=== PATIENT | female | born 1955 | race Caucasian/White ===

== ENCOUNTER → 2019-06-03 | Outpatient (CLI) | payer BC ==
[~2019-06-03] MED LIST: FENO145T2 PO; INSASP10V SQ; INSU100I14 SQ; INSU100I16 SQ; INSU100V5 SQ; LISI1TAB10 PO; SITA1TAB6 PO
--- NOTE | 2019-06-03 19:42 | Diagnostic Imaging Report ---
INDICATION: Left-sided rib and sternal pain with inspiration. Patient fell on the driveway this afternoon around 4 p.m. FINDINGS: Three views of the left ribs demonstrate the left lung to be clear. No fractures are identified. IMPRESSION: Normal left ribs. Dictated by: Dictated on workstation # [id number]
== END ==
LOC: RAD 17:39
PROVIDERS: ATTEND Nurse Practitioner Family
DX: R07.81 Pleurodynia (principal); W19.XXXA Unspecified fall, initial encounter
CPT/HCPCS: 71100

== ENCOUNTER → 2020-03-23 | Outpatient (CLI) | payer BC ==
--- NOTE | 2020-03-26 12:57 | Diagnostic Imaging Report ---
INDICATION: Routine screening. COMPARISON: 04/09/2018 and 03/04/2017. TECHNIQUE: 2D and 3D bilateral screening mammography was performed with CAD. FINDINGS: Scattered fibroglandular densities are identified bilaterally. There are benign calcifications scattered throughout both breasts. The overall parenchymal pattern is stable. No new mass or malignant appearing microcalcifications are seen. The axillae are unremarkable. IMPRESSION: No mammographic features suspicious for malignancy are identified. ACR BI-RADS Category 2: Benign findings. Result letter will be mailed to the patient. Note: At least 10% of breast cancer is not imaged by mammography. Dictated by: Dictated on workstation # [id number]
== END ==
LOC: RAD 07:44
PROVIDERS: ATTEND Internal Medicine
DX: Z12.31 Encounter for screening mammogram for malignant neoplasm of breast (principal)
CPT/HCPCS: 77063; 77067

== ENCOUNTER → 2020-10-12 | Outpatient (CLI) | payer BC ==
--- NOTE | 2020-10-12 13:14 | Diagnostic Imaging Report ---
INDICATION: Left breast lump. Correlation is made with prior mammogram from 03/23/2020 and 04/09/2018. The lateral left 2-D and 3-D diagnostic mammography was performed with CAD. Left breast is heterogeneously dense, limiting sensitivity of mammography. A BB marker was placed at the area of palpable abnormality in the left breast. No definite underlying abnormality is seen. There are benign calcifications throughout the left breast. No dominant mass is seen. Left axilla is unremarkable. IMPRESSION: BI-RADS 0. No mammographic features suspicious for malignancy are identified. Even so, directed sonographic interrogation of the area of lump left breast is recommended and will be performed today. ACR BI-RADS Category 0: Incomplete. (Needs additional imaging evaluation). Result letter will be mailed to the patient. Note: At least 10% of breast cancer is not imaged by mammography. Dictated by: Dictated on workstation # [id number]
--- NOTE | 2020-10-12 14:18 | Diagnostic Imaging Report ---
INDICATION: Left breast lump. CORRELATION is made with diagnostic mammogram earlier same day. Sonographic interrogation of the area of palpable lump left breast was performed. This corresponds to the 9:30 location approximately 5 cm from the nipple. There is a hypoechoic irregular solid-appearing mass at this location measuring 2.0 x 1.5 x 1.9 cm. This demonstrates posterior acoustic shadowing. There is internal vascularity. IMPRESSION: BI-RADS Category 4 Irregular hypoechoic solid mass at the 9:30 location of the left breast, 5 cm from the nipple. This corresponds to the palpable abnormality. This is highly concerning for breast neoplasm and tissue sampling is recommended. This would be amenable to ultrasound-guided core biopsy. Dictated by: Dictated on workstation # [id number]
== END ==
LOC: RAD 13:15
PROVIDERS: ATTEND Physician Assistant
DX: N63.22 Unspecified lump in the left breast, upper inner quadrant (principal)
CPT/HCPCS: 76642; 77065; G0279

== ENCOUNTER → 2020-10-16 | Outpatient (CLI) | payer BC, MEDICARE ==
[~2020-10-16] MED LIST changes: +LIDOCAINE 1% INJ 20 ML 20 ML VIAL INJ ONE
--- NOTE | 2020-10-16 15:41 | Diagnostic Imaging Report ---
INDICATION: Left breast mass. Patient presents for ultrasound guided core biopsy. DETAILS OF THE PROCEDURE: The patient was brought to the procedure room and placed on the table in the supine position. Ultrasound imaging of the left breast was performed to evaluate for an appropriate entry site. The skin of the left breast was then prepped and draped in the usual sterile fashion. A small amount of 1% lidocaine was utilized for local anesthesia. A total of 3 core biopsies of the irregular hypoechoic solid mass at the 9:30 location of the left breast 5 cm from the nipple was performed utilizing a 14-gauge Achieve needle. A marker clip was then deployed. Hemostasis was obtained using manual compression. The patient tolerated the procedure well and left the Department in stable condition. IMPRESSION: Successful ultrasound guided core biopsy of the solid mass at the 9:30 location of the left breast 5 cm from the nipple. Pathology results are currently pending. Dictated by: Dictated on workstation # [id number]
--- NOTE | 2020-10-17 10:01 | Diagnostic Imaging Report ---
INDICATION: Status post left breast biopsy. Unilateral left CC and MLO mammography was performed status post left breast biopsy. There is a marker clip located next to an area of architectural distortion medial left breast, status post biopsy. There are benign calcifications throughout the left breast. IMPRESSION: Marker clip, as described. Dictated by: Dictated on workstation # [id number]
== END ==
LOC: RAD 13:00
PROVIDERS: ATTEND Internal Medicine
DX: N63.22 Unspecified lump in the left breast, upper inner quadrant (principal)
CPT/HCPCS: 19083; 77065; A4648; G0279

== ENCOUNTER → 2020-10-26 | Outpatient (CLI) | payer BC, MEDICARE ==
[~2020-10-26] MED LIST changes: +BARIUM SUSPENSION 2.1% (VANILLA SILQ) 450 ML PO ONE; +CATHETER FLUSH 10 ML SYR IV PRN; +HOLD METFORMIN - RECEIVED CONTRAST 20 ML VIAL IV SCH; +IOHEXOL 350 MG/ML 100 ML (OMNIPAQUE 350) VIAL IV ONE; -LIDOCAINE 1% INJ 20 ML 20 ML VIAL INJ ONE; +NS 100 ML (IVPB) BAG IV ONE
--- NOTE | 2020-10-26 11:36 | Diagnostic Imaging Report ---
PROCEDURE: CT chest with contrast, CT abdomen with and without contrast. TECHNIQUE: Precontrast acquisitions were acquired through the abdomen. Multiple contiguous axial images were obtained through the chest and abdomen after administration of intravenous contrast. Auto Exposure Controls were utilized during the CT exam to meet ALARA standards for radiation dose reduction. INDICATION: New diagnosis breast cancer. FINDINGS: There is no axillary or internal mammary lymphadenopathy. The remaining mediastinal and hilar stations appeared normal. No pulmonary nodule or detectable lung mass. No thoracic effusion. There is some mild focal parenchymal distortion in the medial left breast superior to the nipple line. This is an equivocal CT finding. No suspicious lytic or sclerotic bony lesion. ABDOMEN: The liver density is consistent with its fatty infiltration. There is a large stone at the gallbladder. No bile duct dilatation. The pancreas and adrenals are negative. There is no abdominal mesenteric or retroperitoneal adenopathy and there is no ascites. The atherosclerotic aorta is nonaneurysmal. The kidneys unobstructed. The nonfocal spleen unremarkable. The pancreas negative. There is focal skin thickening and subcutaneous induration in the right upper quadrant which may reflect a focal area of cellulitis. No discrete mass or fluid collection. No gas or foreign body. IMPRESSION: 1. No findings of metastatic disease to the chest or abdomen. 2. Fatty liver and cholelithiasis. 3. Right upper quadrant focal subcutaneous induration and skin thickening suggestive of mild focal cellulitis correlate clinically. 4. No definite visualization of the patient's reported breast cancer, however there is some mild focal irregularity of the parenchyma in the upper inner quadrant of the left breast. No evidence for hematoma or other fluid collection. Dictated by: Dictated on workstation # [id number]
--- NOTE | 2020-10-26 14:44 | Diagnostic Imaging Report ---
INDICATION: Breast carcinoma. TECHNIQUE: Patient was administered 26.6 mCi technetium 99m MDP intravenously and whole body imaging was performed after a three-hour delay. COMPARISON: No prior bone scans are available for comparison. FINDINGS: There is normal uptake of activity by the axial and appendicular skeleton. There is uptake by the kidneys with excretion into the urinary bladder. Mild uptake involving the proximal left fibula is noted which may be degenerative. No suspicious focus of tracer accumulation is seen to suggest osseous metastatic disease. IMPRESSION: No scintigraphic evidence of osseous metastatic disease. Dictated by: Dictated on workstation # [id number]
== END ==
LOC: CARD 11:00
PROVIDERS: ATTEND Internal Medicine Hematology & Oncology
DX: C50.919 Malignant neoplasm of unspecified site of unspecified female breast (principal); K76.0 Fatty (change of) liver, not elsewhere classified; K80.20 Calculus of gallbladder without cholecystitis without obstruction
CPT/HCPCS: 71260; 74170; 78306; A9503

== ENCOUNTER → 2021-01-17 | Outpatient (RCR) | payer BC, MEDICARE ==
[2020-10-19 10:01] LABS: BASOPHILS % (AUTO) 1 % (0-10); EOSINOPHILS # (AUTO) 0.2 10^3/uL (0.0-0.3); EOSINOPHILS % (AUTO) 5 % (0-10); HEMATOCRIT 37 % (35-52); HEMOGLOBIN 12.5 g/dL (11.5-16.0); LYMPHOCYTES # (AUTO) 1.9 10^3/uL (1.0-4.0); LYMPHOCYTES % (AUTO) 36 % (12-44); MEAN CORPUSCULAR HEMOGLOBIN 29 pg (25-34); MEAN CORPUSCULAR HGB CONC 33 g/dL (32-36); MEAN CORPUSCULAR VOLUME 87 fL (80-99); MEAN PLATELET VOLUME 9.8 fL (9.0-12.2); MONOCYTES # (AUTO) 0.4 10^3/uL (0.0-1.0); MONOCYTES % (AUTO) 8 % (0-12); NEUTROPHILS # (AUTO) 2.7 10^3/uL (1.8-7.8); NEUTROPHILS % (AUTO) 51 % (42-75); PLATELET COUNT 212 10^3/uL (130-400); WHITE BLOOD COUNT 5.3 10^3/uL (4.3-11.0)
[2020-10-19 10:18] LABS: ALBUMIN 4.2 GM/DL (3.2-4.5); BILIRUBIN,TOTAL 0.5 MG/DL (0.1-1.0); CALCIUM 10.1 MG/DL (8.5-10.1); CREATININE SERUM 1.05 MG/DL (0.60-1.30); POTASSIUM 4.5 MMOL/L (3.6-5.0); TOTAL PROTEIN 7.4 GM/DL (6.4-8.2)
[~2021-01-17] MED LIST changes: -BARIUM SUSPENSION 2.1% (VANILLA SILQ) 450 ML PO ONE; -CATHETER FLUSH 10 ML SYR IV PRN; -HOLD METFORMIN - RECEIVED CONTRAST 20 ML VIAL IV SCH; -IOHEXOL 350 MG/ML 100 ML (OMNIPAQUE 350) VIAL IV ONE; -NS 100 ML (IVPB) BAG IV ONE
[2021-01-17 09:45] LABS: BASOPHILS # (AUTO) 0.1 10^3/uL (0.0-0.1); BASOPHILS % (AUTO) 1 % (0-10); EOSINOPHILS # (AUTO) 0.3 10^3/uL (0.0-0.3); EOSINOPHILS % (AUTO) 5 % (0-10); HEMATOCRIT 40 % (35-52); HEMOGLOBIN 13.5 g/dL (11.5-16.0); LYMPHOCYTES # (AUTO) 2.9 10^3/uL (1.0-4.0); LYMPHOCYTES % (AUTO) 39 % (12-44); MEAN CORPUSCULAR HEMOGLOBIN 29 pg (25-34); MEAN CORPUSCULAR HGB CONC 34 g/dL (32-36); MEAN CORPUSCULAR VOLUME 87 fL (80-99); MONOCYTES # (AUTO) 0.7 10^3/uL (0.0-1.0); MONOCYTES % (AUTO) 10 % (0-12); NEUTROPHILS # (AUTO) 3.3 10^3/uL (1.8-7.8); NEUTROPHILS % (AUTO) 45 % (42-75); PLATELET COUNT 234 10^3/uL (130-400); WHITE BLOOD COUNT 7.3 10^3/uL (4.3-11.0)
[2021-01-17 10:04] LABS: ALBUMIN 4.5 GM/DL (3.2-4.5); BILIRUBIN,TOTAL 0.4 MG/DL (0.1-1.0); CALCIUM 10.2 MG/DL (8.5-10.1); CREATININE SERUM 1.06 MG/DL (0.60-1.30); POTASSIUM 4.9 MMOL/L (3.6-5.0); TOTAL PROTEIN 7.9 GM/DL (6.4-8.2)
== END | disposition home or self-care (01) ==
LOC: ONC 10-19 09:31
PROVIDERS: ATTEND Internal Medicine Hematology & Oncology
DX: C50.412 Malignant neoplasm of upper-outer quadrant of left female breast (principal)
CPT/HCPCS: 80053; 85025; G0463; 99213; 99214

== ENCOUNTER 2021-02-12 08:56 | Emergency (ER) | payer BC, MEDICARE ==
[~2021-02-12] VITALS: Ht 160 cm; Wt 86.0 kg
[2021-02-12 09:24] LABS: BASOPHILS # (AUTO) 0.1 10^3/uL (0.0-0.1); BASOPHILS % (AUTO) 1 % (0-10); EOSINOPHILS # (AUTO) 0.3 10^3/uL (0.0-0.3); EOSINOPHILS % (AUTO) 6 % (0-10); HEMATOCRIT 39 % (35-52); LYMPHOCYTES # (AUTO) 1.7 10^3/uL (1.0-4.0); LYMPHOCYTES % (AUTO) 34 % (12-44); MEAN CORPUSCULAR HEMOGLOBIN 29 pg (25-34); MEAN CORPUSCULAR HGB CONC 34 g/dL (32-36); MEAN CORPUSCULAR VOLUME 85 fL (80-99); MONOCYTES # (AUTO) 0.4 10^3/uL (0.0-1.0); MONOCYTES % (AUTO) 9 % (0-12); NEUTROPHILS # (AUTO) 2.4 10^3/uL (1.8-7.8); NEUTROPHILS % (AUTO) 50 % (42-75); PLATELET COUNT 193 10^3/uL (130-400); WHITE BLOOD COUNT 4.9 10^3/uL (4.3-11.0)
--- NOTE | 2021-02-12 09:24 | ED General ---
General Stated Complaint: HIGH BLOOD,CARREON,LATHARGIC Source of Information: Patient Exam Limitations: No Limitations History of Present Illness Date Seen by Provider: Feb 12, 2021 Time Seen by Provider: 09:08 Initial Comments Patient is a 65-year-old female who presents to the emergency department today with a chief complaint of feeling dizzy, mild to moderate headache, nausea and vomiting. Patient states symptoms started within the last 24 hours. She denies any sick contacts at home. Patient is currently being treated by radiation therapy for breast cancer on a daily basis. Patient states her symptoms prim arily started last evening. She denies abdominal pain, diarrhea, black or bloody stools. No urinary complaints. No chest pain or shortness of breath. No upper respiratory symptoms. No changes to her medications. She takes medications for high blood pressure, diabetes and high cholesterol. Patient has been out of her insulin for the last several days. She states she routinely runs out towards the end of the month. All other review of systems reviewed and negative except as stated. Timing/Duration: 24 Hours Severity: Moderate Modifying Factors: worse with Movement Associated Systoms: Headaches, Nausea/Vomiting, Other (Dizzy) Allergies and Home Medications Allergies Coded Allergies: No Known Drug Allergies (Unverified , 08/06/10) Home Medications Fenofibrate,Micronized 145 Mg Tablet, 1 EACH PO DAILY, (Reported) Hctz/Lisinopril 1 Tab Tablet, 1 EACH PO DAILY, (Reported) Insulin Aspart 10 Unit/0.1 Ml Vial, 25 UNIT SQ AC BREAKFAST Prescribed by: SARAH HARRINGTON on 08/15/10 0825 Insulin Aspart 100 Unit/1 Ml Insuln.pen, 20 UNIT SQ BID, (Reported) Insulin Detemir 100 Unit/1 Ml Vial, 50 UNIT SQ HS Prescribed by: SARAH HARRINGTON on 08/15/10 0825 Insulin Detemir 100 Unit/1 Ml Insuln.pen, 50 UNIT SQ HS, (Reported) Sitagliptin Phos/Metformin Hcl 1 Each Tablet, 1 EACH PO BID WITH MEALS, (Reported) Patient Home Medication List Home Medication List Reviewed: Yes Review of Systems Review of Systems Constitutional: see HPI EENTM: no symptoms reported Respiratory: no symptoms reported Cardiovascular: no symptoms reported Gastrointestinal: nausea, vomiting Genitourinary: no symptoms reported Musculoskeletal: no symptoms reported Skin: no symptoms reported Psychiatric/Neurological: Headache, Other (Dizziness) All Other Systems Reviewed Negative Unless Noted: Yes Past Rgsyamj-Vnlplx-Fikvbu Hx Past Medical History Reproductive Disorders: No (STATES HAS A LUMP IN RIGHT BREAST, BUT WASTOLD "I AM FINE") Physical Exam Vital Signs Vital Signs - First Documented 02/12/21 09:00 Temp 36.6 Pulse 77 Resp 18 B/P (MAP) 177/89 (118) Pulse Ox 98 Capillary Refill : Height, Weight, BMI Height: '" Weight: lbs. oz. kg; BMI Method: General Appearance: No Apparent Distress, WD/WN Eyes: Bilateral Eye Normal Inspection, Bilateral Eye PERRL, Bilateral Eye EOMI HEENT: TM Abnormal (R) (Fluid behind right TM, left TM appears normal) Neck: Normal Inspection Respiratory: No Accessory Muscle Use, No Respiratory Distress Cardiovascular: Regular Rate, Rhythm Gastrointestinal: Non Tender, Soft Extremity: Normal Capillary Refill, Normal Inspection, Normal Range of Motion, Non Tender Neurologic/Psychiatric: Alert, Oriented x3, No Motor/Sensory Deficits, Normal Mood/Affect, full stack python developer II-XII Norm as Tested, Other (Normal jvupap-lv-pnsf. On extraocular muscle testing the patient states that she "sees double" with forced deviation to the left) Skin: Normal Color, Warm/Dry Progress/Results/Core Measures Suspected Sepsis SIRS Temperature: Pulse: Respiratory Rate: Laboratory Tests 02/12/21 09:20: White Blood Count 4.9 Blood Pressure / Mean: Laboratory Tests 02/12/21 09:20: Creatinine 0.97, Platelet Count 193 Results/Orders Lab Results Laboratory Tests Test 02/12/21 09:20 02/12/21 09:30 Range/Units White Blood Count 4.9 4.3-11.0 10^3/uL Red Blood Count 4.53 3.80-5.11 10^6/uL Hemoglobin 13.0 11.5-16.0 g/dL Hematocrit 39 35-52 % Mean Corpuscular Volume 85 80-99 fL Mean Corpuscular Hemoglobin 29 25-34 pg Mean Corpuscular Hemoglobin Concent 34 32-36 g/dL Red Cell Distribution Width 13.0 10.0-14.5 % Platelet Count 193 130-400 10^3/uL Mean Platelet Volume 10.0 9.0-12.2 fL Immature Granulocyte % (Auto) 0 % Neutrophils (%) (Auto) 50 42-75 % Lymphocytes (%) (Auto) 34 12-44 % Monocytes (%) (Auto) 9 0-12 % Eosinophils (%) (Auto) 6 0-10 % Basophils (%) (Auto) 1 0-10 % Neutrophils # (Auto) 2.4 1.8-7.8 10^3/uL Lymphocytes # (Auto) 1.7 1.0-4.0 10^3/uL Monocytes # (Auto) 0.4 0.0-1.0 10^3/uL Eosinophils # (Auto) 0.3 0.0-0.3 10^3/uL Basophils # (Auto) 0.1 0.0-0.1 10^3/uL Immature Granulocyte # (Auto) 0.0 0.0-0.1 10^3/uL Sodium Level 137 135-145 MMOL/L Potassium Level 4.3 3.6-5.0 MMOL/L Chloride Level 101 98-107 MMOL/L Carbon Dioxide Level 23 21-32 MMOL/L Anion Gap 13 5-14 MMOL/L Blood Urea Nitrogen 11 7-18 MG/DL Creatinine 0.97 0.60-1.30 MG/DL Estimat Glomerular Filtration Rate 57 BUN/Creatinine Ratio 11 Glucose Level 332 H 70-105 MG/DL Calcium Level 9.8 8.5-10.1 MG/DL Urine Color YELLOW Urine Clarity CLEAR Urine pH 6.0 5-9 Urine Specific [place] 1.020 1.016-1.022 Urine Protein 1+ H NEGATIVE Urine Glucose (UA) 2+ H NEGATIVE Urine Ketones NEGATIVE NEGATIVE Urine Nitrite NEGATIVE NEGATIVE Urine Bilirubin NEGATIVE NEGATIVE Urine Urobilinogen 0.2 < = 1.0 MG/DL Urine Leukocyte Esterase NEGATIVE NEGATIVE Urine RBC (Auto) NEGATIVE NEGATIVE Urine RBC NONE /HPF Urine WBC 0-2 /HPF Urine Squamous Epithelial Cells RARE /HPF Urine Crystals NONE /LPF Urine Bacteria NEGATIVE /HPF Urine Casts NONE /LPF Urine Mucus NEGATIVE /LPF Urine Culture Indicated NO My Orders Orders - REGINO RHODES MD Cbc With Automated Diff (02/12/21 09:20) Basic Metabolic Panel (02/12/21 09:20) Ua Culture If Indicated (02/12/21 09:20) Ed Iv/Invasive Line Start (02/12/21 09:20) Ct Head Wo (02/12/21 10:13) Vital Signs/I&O 02/12/21 09:00 Temp 36.6 Pulse 77 Resp 18 B/P (MAP) 177/89 (118) Pulse Ox 98 Capillary Refill : Point of Care Testing Finger Stick Blood Glucose: 343 Progress Note : Time: 11:16 Progress Note Patient has been resting comfortably throughout her stay here in the emergency department. Her dizziness seems to have improved. Patient states she still has mild to moderate headache. We will give her a little Tylenol prior to disc harge. Labs are reviewed and are all within normal limits except for some hyperglycemia on her chemistry. Her CT brain noncontrast shows no acute abnormalities. Vital signs have been stable. Patient is counseled on vertigo and sudden movements contributing to the dizzy spells. I will send some Zofran to her pharmacy for the nausea. Patient is encouraged to drink plenty of flu ids. She verbalizes understanding. She has no clinical or objective findings at this time to warrant further studies or admission to the hospital. All questions have been sought and answered. Patient is stable for discharge. Departure Impression Primary Impression: Vertigo Additional Impressions: Headache Qualified Codes: R51.9 - Headache, unspecified Hyperglycemia due to type 2 diabetes mellitus Qualified Codes: E11.65 - Type 2 diabetes mellitus with hyperglycemia; Z79.4 - half-way (current) use of insulin Disposition: 01 HOME, SELF-CARE Condition: Stable Departure-Patient Inst. Decision time for Depature: 11:18 Referrals: DAVID PUTNAM MD (PCP/Family) Primary Care Physician Patient Instructions: Dizziness, Adult ED Add. Discharge Instructions: Drink plenty of fluids to stay well-hydrated. Be careful when changing positions as this can cause your dizzy spells to recur. Continue your home daily medications, especially your insulin. Follow-up with Dr. Putnam. Return to the emergency room for any new, concerning or emergent complaints. Scripts Ondansetron (Ondansetron Odt) 4 Mg Tab.rapdis 4 MG PO Q8H PRN for nausea, #20 TAB Prov: REGINO RHODES MD 02/12/21 REGINO RHODES MD Feb 12, 2021 09:24
[2021-02-12 09:41] LABS: BILIRUBIN,URINE NEGATIVE (NEGATIVE); CLARITY,URINE CLEAR; COLOR,URINE YELLOW; GLUCOSE, URINE (UA) 2+ (NEGATIVE); KETONES,URINE NEGATIVE (NEGATIVE); LEUKOCYTE ESTERASE ,URINE NEGATIVE (NEGATIVE); NITRITE,URINE NEGATIVE (NEGATIVE); PROTEIN,URINE 1+ (NEGATIVE)
[2021-02-12 09:48] LABS: POTASSIUM 4.3 MMOL/L (3.6-5.0)
[2021-02-12 09:48] LABS: BACTERIA,URINE NEGATIVE /HPF; SQUAMOUS EPITHELIAL CELL,UR RARE /HPF; WBC,URINE 0-2 /HPF
[2021-02-12 09:50] LABS: CALCIUM 9.8 MG/DL (8.5-10.1)
[2021-02-12 09:54] LABS: CREATININE SERUM 0.97 MG/DL (0.60-1.30)
--- NOTE | 2021-02-12 10:45 | Diagnostic Imaging Report ---
Clinical indication: Patient with dizziness and headache. Patient on radiation treatment for breast cancer. Exam: Axial CT scan of the brain without IV contrast with coronal and sagittal reformatted images. Auto Exposure Controls were utilized during the CT exam to meet ALARA standards for radiation dose reduction. Comparison: None. Findings: There is no evidence of acute cerebral infarct, intracranial hemorrhage, or gross mass effect. The brain parenchymal volume appears appropriate for patient's age. There is subtle low-attenuation areas involving both cerebral hemispheres, likely representing chronic small vessel ischemic disease. There is normal hernandez-white matter distinction. There is no significant midline shift or herniation. There is no evidence of hydrocephalus. The basal cisterns are unremarkable. There are small lucent areas involving the calvarium. The largest one measures 11 mm in the right lateral frontal region. These findings are nonspecific. Intraosseous hemangiomas may be considered, but should be followed on subsequent imaging. There are no sclerotic lesions seen. Otherwise, the skull, extracranial soft tissue, and orbits are unremarkable. The paranasal sinuses are unremarkable. Temporal bones show no significant abnormality. Impression: 1: There is no evidence of acute intracranial process. There is no definite evidence of metastatic disease seen on this exam. If there is further need to evaluate for subtle areas of brain metastasis, then MRI of the brain with and without IV contrast would better evaluate. 2: Age-related brain parenchymal changes. 3: There are small lucent areas involving the calvarium which are nonspecific. Intraosseous hemangiomas may be considered. These areas should be followed on subsequent imaging. There is no sclerotic calvarial lesion seen. Dictated by: Dictated on workstation # [id number]
[2021-02-12] MEDS ORDERED: ACETAMINOPHEN 500 MG TAB (TYLENOL) PO ONE (11:15)
[2021-02-12] MEDS ORDERED: ONDA4TAB11 PO (11:20)
[2021-02-12 11:28] VITALS: BP 171/92
== END 2021-02-12 11:29 | disposition home or self-care (01) ==
LOC: EDUNIT# 08:56 → ER 09:00
DX: R42 Dizziness and giddiness (principal); R51.9 Headache, unspecified; E11.65 Type 2 diabetes mellitus with hyperglycemia
CPT/HCPCS: 36415; 70450; 80048; 81000; 85025

== ENCOUNTER → 2021-04-02 | Outpatient (CLI) | payer BC, MEDICARE ==
[~2021-04-02] MED LIST changes: +ONDA4TAB11 PO
--- NOTE | 2021-04-02 15:46 | Diagnostic Imaging Report ---
INDICATION: 65-year-old asymptomatic postmenopausal female. COMPARISON: None available. FINDINGS: AP Spine L2-L4: [BMD (g/cm2): 0.958] [T-Score: -2.0] [Z-Score: -1.1] [BMD Previous: na] [BMD % Change: na] LT Hip Neck: [BMD (g/cm2): 0.829] [T-Score: -1.5] [Z-Score: -0.4] LT Hip Total: [BMD (g/cm2):0.947] [T-Score:-0.5] [Z-Score: 0.3] [BMD Previous: na] [BMD % Change: na] RT Hip Neck: [BMD (g/cm2):0.824] [T-Score:-1.5] [Z-Score:-0.5] RT Hip Total: [BMD (g/cm2):0.935] [T-score:-0.6] [Z-Score:0.2] [BMD Previous:na] [BMD % Change:na] *Indicates significant change from prior examination based on 95% confidence level. World Health Organization criteria for BMD interpretation classify patients as Normal (T-score at or above -1.0), Osteopenic (T-score between -1.0 and -2.5) or Osteoporotic (T-score at or below -2.5). LIMITATIONS AND MODIFICATION: None. FRACTURE RISK (FRAX SCORE): The ten year probability of (%): Major Osteoporotic Fracture: [8.8] Hip Fracture: [1.0] IMPRESSION: 1. Osteopenia (Low bone mass). 2. Baseline examination. 3. See below National Osteoporosis Foundation guidelines on when to potentially initiate pharmacologic therapy. Based on the National Osteoporosis Foundation Guidelines, pharmacologic treatment should be initiated in any of the following, unless clinical conditions suggest otherwise: * Any patient with prior fragility fracture of the hip or vertebrae. A spine fracture indicates 5X risk for subsequent spine fracture and 2X risk for subsequent hip fracture. * Osteoporosis (T-score <-2.5). * Postmenopausal women and men age 50 and older with low bone mass/osteopenia (T-score between -1.0 and -2.5) by DXA and 10-year major osteoporotic fracture greater than 20% or a 10-year probability of hip fracture greater than 3%. These fracture risks are supplied above in the FRAX score, if applicable. * Clinician judgement and/or patient preferences may indicate treatment for people with 10-year fracture probabilities above or below these levels. Dictated by: Dictated on workstation # [id number]
== END ==
LOC: RAD 12:30
PROVIDERS: ATTEND Nurse Practitioner Adult Health
DX: M85.80 Other specified disorders of bone density and structure, unspecified site (principal); C50.219 Malignant neoplasm of upper-inner quadrant of unspecified female breast; Z78.0 Asymptomatic menopausal state
CPT/HCPCS: 77080

== ENCOUNTER → 2021-04-02 | Outpatient (CLI) | payer BC, MEDICARE ==
[2021-04-02 12:31] LABS: BASOPHILS % (AUTO) 1 % (0-10); EOSINOPHILS # (AUTO) 0.2 10^3/uL (0.0-0.3); EOSINOPHILS % (AUTO) 5 % (0-10); HEMATOCRIT 37 % (35-52); HEMOGLOBIN 12.7 g/dL (11.5-16.0); LYMPHOCYTES # (AUTO) 1.3 10^3/uL (1.0-4.0); LYMPHOCYTES % (AUTO) 32 % (12-44); MEAN CORPUSCULAR HEMOGLOBIN 30 pg (25-34); MEAN CORPUSCULAR HGB CONC 34 g/dL (32-36); MEAN CORPUSCULAR VOLUME 88 fL (80-99); MEAN PLATELET VOLUME 9.7 fL (9.0-12.2); MONOCYTES # (AUTO) 0.4 10^3/uL (0.0-1.0); MONOCYTES % (AUTO) 9 % (0-12); NEUTROPHILS # (AUTO) 2.2 10^3/uL (1.8-7.8); NEUTROPHILS % (AUTO) 52 % (42-75); PLATELET COUNT 195 10^3/uL (130-400); WHITE BLOOD COUNT 4.1 10^3/uL (4.3-11.0)
[2021-04-02 12:50] LABS: ALBUMIN 4.3 GM/DL (3.2-4.5); BILIRUBIN,TOTAL 0.4 MG/DL (0.1-1.0); CREATININE SERUM 1.16 MG/DL (0.60-1.30); TOTAL PROTEIN 7.6 GM/DL (6.4-8.2)
== END ==
LOC: LAB 12:11
PROVIDERS: ATTEND Nurse Practitioner Family
DX: Z00.00 Encounter for general adult medical examination without abnormal findings (principal); I10 Essential (primary) hypertension; E11.9 Type 2 diabetes mellitus without complications
CPT/HCPCS: 36415; 80053; 80061; 83036; 84443; 85025

== ENCOUNTER 2021-04-25 09:21 | Outpatient (RCR) | payer BC, MEDICARE ==
[2021-02-28 13:07] LABS: BASOPHILS # (AUTO) 0.1 10^3/uL (0.0-0.1); BASOPHILS % (AUTO) 1 % (0-10); EOSINOPHILS # (AUTO) 0.3 10^3/uL (0.0-0.3); EOSINOPHILS % (AUTO) 5 % (0-10); HEMATOCRIT 39 % (35-52); HEMOGLOBIN 13.1 g/dL (11.5-16.0); LYMPHOCYTES # (AUTO) 1.5 10^3/uL (1.0-4.0); LYMPHOCYTES % (AUTO) 23 % (12-44); MEAN CORPUSCULAR HEMOGLOBIN 30 pg (25-34); MEAN CORPUSCULAR HGB CONC 34 g/dL (32-36); MEAN CORPUSCULAR VOLUME 87 fL (80-99); MEAN PLATELET VOLUME 10.2 fL (9.0-12.2); MONOCYTES # (AUTO) 0.7 10^3/uL (0.0-1.0); MONOCYTES % (AUTO) 11 % (0-12); NEUTROPHILS # (AUTO) 3.7 10^3/uL (1.8-7.8); NEUTROPHILS % (AUTO) 59 % (42-75); PLATELET COUNT 200 10^3/uL (130-400); WHITE BLOOD COUNT 6.3 10^3/uL (4.3-11.0)
[2021-02-28 13:27] LABS: ALBUMIN 4.3 GM/DL (3.2-4.5); BILIRUBIN,TOTAL 0.5 MG/DL (0.1-1.0); CALCIUM 10.2 MG/DL (8.5-10.1); CREATININE SERUM 1.08 MG/DL (0.60-1.30); POTASSIUM 4.6 MMOL/L (3.6-5.0)
[2021-04-10 15:39] LABS: BASOPHILS # (AUTO) 0.1 10^3/uL (0.0-0.1); BASOPHILS % (AUTO) 1 % (0-10); EOSINOPHILS # (AUTO) 0.3 10^3/uL (0.0-0.3); EOSINOPHILS % (AUTO) 4 % (0-10); HEMATOCRIT 39 % (35-52); LYMPHOCYTES % (AUTO) 33 % (12-44); MEAN CORPUSCULAR HEMOGLOBIN 30 pg (25-34); MEAN CORPUSCULAR HGB CONC 33 g/dL (32-36); MEAN CORPUSCULAR VOLUME 89 fL (80-99); MEAN PLATELET VOLUME 9.9 fL (9.0-12.2); MONOCYTES # (AUTO) 0.5 10^3/uL (0.0-1.0); MONOCYTES % (AUTO) 9 % (0-12); NEUTROPHILS # (AUTO) 3.1 10^3/uL (1.8-7.8); NEUTROPHILS % (AUTO) 52 % (42-75); PLATELET COUNT 222 10^3/uL (130-400); WHITE BLOOD COUNT 5.9 10^3/uL (4.3-11.0)
[2021-04-10 16:01] LABS: ALBUMIN 4.4 GM/DL (3.2-4.5); BILIRUBIN,TOTAL 0.3 MG/DL (0.1-1.0); CALCIUM 10.1 MG/DL (8.5-10.1); CREATININE SERUM 1.08 MG/DL (0.60-1.30); POTASSIUM 4.6 MMOL/L (3.6-5.0)
== END 2021-04-29 | disposition home or self-care (01) ==
LOC: ONC 09:21
PROVIDERS: ATTEND Internal Medicine Hematology & Oncology
DX: Z51.0 Encounter for antineoplastic radiation therapy (principal); C50.212 Malignant neoplasm of upper-inner quadrant of left female breast; I10 Essential (primary) hypertension; E78.00 Pure hypercholesterolemia, unspecified; E11.9 Type 2 diabetes mellitus without complications; K21.9 Gastro-esophageal reflux disease without esophagitis; Z90.12 Acquired absence of left breast and nipple; Z98.890 Other specified postprocedural states; Z17.0 Estrogen receptor positive status [ER+]; M19.90 Unspecified osteoarthritis, unspecified site; Z87.891 Personal history of nicotine dependence; Z80.3 Family history of malignant neoplasm of breast; Z79.4 Long term (current) use of insulin; Z79.899 Other long term (current) drug therapy
CPT/HCPCS: 77280; 77290; 77295; 77300; 77307; 77334; 77336; 77417; 80053; 82306; 85025; 99204; 99213; 99214

== ENCOUNTER 2021-08-21 09:49 | Outpatient (RCR) | payer BC, MEDICARE ==
[2021-08-21 09:54] LABS: BASOPHILS # (AUTO) 0.1 10^3/uL (0.0-0.1); BASOPHILS % (AUTO) 1 % (0-10); EOSINOPHILS # (AUTO) 0.3 10^3/uL (0.0-0.3); EOSINOPHILS % (AUTO) 6 % (0-10); HEMATOCRIT 38 % (35-52); HEMOGLOBIN 12.8 g/dL (11.5-16.0); LYMPHOCYTES # (AUTO) 1.5 10^3/uL (1.0-4.0); LYMPHOCYTES % (AUTO) 32 % (12-44); MEAN CORPUSCULAR HEMOGLOBIN 29 pg (25-34); MEAN CORPUSCULAR HGB CONC 33 g/dL (32-36); MEAN CORPUSCULAR VOLUME 88 fL (80-99); MEAN PLATELET VOLUME 9.7 fL (9.0-12.2); MONOCYTES # (AUTO) 0.4 10^3/uL (0.0-1.0); MONOCYTES % (AUTO) 9 % (0-12); NEUTROPHILS # (AUTO) 2.5 10^3/uL (1.8-7.8); NEUTROPHILS % (AUTO) 52 % (42-75); PLATELET COUNT 203 10^3/uL (130-400); WHITE BLOOD COUNT 4.8 10^3/uL (4.3-11.0)
[2021-08-21 10:16] LABS: ALBUMIN 4.4 GM/DL (3.2-4.5); BILIRUBIN,TOTAL 0.6 MG/DL (0.1-1.0); CALCIUM 10.3 MG/DL (8.5-10.1); CREATININE SERUM 1.07 MG/DL (0.60-1.30); POTASSIUM 4.8 MMOL/L (3.6-5.0); TOTAL PROTEIN 7.5 GM/DL (6.4-8.2)
== END 2021-09-06 | disposition home or self-care (01) ==
LOC: ONC 09:49
PROVIDERS: ATTEND Internal Medicine Hematology & Oncology
DX: C50.212 Malignant neoplasm of upper-inner quadrant of left female breast (principal); M85.80 Other specified disorders of bone density and structure, unspecified site; I10 Essential (primary) hypertension; E11.9 Type 2 diabetes mellitus without complications; Z90.12 Acquired absence of left breast and nipple; Z78.0 Asymptomatic menopausal state; Z98.890 Other specified postprocedural states; Z79.811 Long term (current) use of aromatase inhibitors; Z92.3 Personal history of irradiation
CPT/HCPCS: 80053; 85025; G0463; 99213

== ENCOUNTER 2021-10-18 02:44 | Emergency (ER) | payer MEDICARE ==
[~2021-10-18] VITALS: Ht 160 cm; Wt 83.0 kg
[2021-10-18 03:14] LABS: POTASSIUM 4.1 MMOL/L (3.6-5.0)
[2021-10-18 03:16] LABS: CALCIUM 9.9 MG/DL (8.5-10.1)
[2021-10-18 03:20] LABS: CREATININE SERUM 1.23 MG/DL (0.60-1.30)
--- NOTE | 2021-10-18 03:59 | ED General ---
General Chief Complaint: Glucose Problems Stated Complaint: AMS,WEAK Nursing Triage Note: PT TO ED BY POV WITH C/O AMS. PT DAUGHTER REPORTS PT BEGAN KICKING IN BED AT APPROX 0100, "STARED OFF INTO SPACE," AND STUCK HER TONGUE OUT. PT FAMILY CALLED 911 AND DAUGHTER REPORTS PT BLOOD GLUCOSE FOR EMS WAS 23, PT WAS GIVEN GLUCOSE IV BY EMS, AND PT ATE A SANDWICH AT 0145. UPON ARRIVAL, PT A&O X4, GLUCOSE 101, STATES SHE WAS OUT OF LEVEMIR SO SHE TOOK 90 OF NOVALOG INSTEAD OF HER REGULAR 60 THIS EVENING. Source of Information: Patient, Family Exam Limitations: No Limitations History of Present Illness Date Seen by Provider: Oct 18, 2021 Time Seen by Provider: 02:40 Initial Comments This is 66-year-old woman presents to the emergency room by private vehicle after she awoke her spouse with kicking in bed around 0100. He found her to have altered mental status at that time. Patient's daughter accompanies her to the ER and states her behavior was "like a stroke". EMS was activated to the home. Blood sugar for them was 23. Glucose replacement was given by IV route and patient ate a sandwich. They then presented to the emergency room by private vehicle. Upon arrival patient is alert and oriented with a fingerstick blood sugar of 101. Patient states she normally takes Levemir 90 units at bedtime. However, she was out of Levemir so she took 90 units of NovoLog instead of her usual 60 units of NovoLog. She also took the NovoLog at bedtime instead of with her supper. Allergies and Home Medications Allergies Coded Allergies: No Known Drug Allergies (Unverified , 08/06/10) Patient Home Medication List Home Medication List Reviewed: Yes Fenofibrate,Micronized (Tricor) 145 Mg Tablet, 1 EACH PO DAILY, (Reported) Entered as Reported by: ELIE STORY on 08/06/10 172 Hctz/Lisinopril (Lisinopril-Hctz 20-25MG Tab) 1 Tab Tablet, 1 EACH PO DAILY, (Reported) Entered as Reported by: ELIE STORY on 08/06/10 1722 Insulin Aspart (Novolog) 10 Unit/0.1 Ml Vial, 25 UNIT SQ AC BREAKFAST Prescribed by: SARAH HARRINGTON on 08/15/10 0825 Insulin Aspart (Novolog Pen) 100 Unit/1 Ml Insuln.pen, 20 UNIT SQ BID, (Reported) Entered as Reported by: ELIE STORY on 08/06/10 1720 Insulin Detemir (Levemir Vial) 100 Unit/1 Ml Vial, 50 UNIT SQ HS Prescribed by: SARAH HARRINGTON on 08/15/10 0825 Insulin Detemir (Levemir) 100 Unit/1 Ml Insuln.pen, 50 UNIT SQ HS, (Reported) Entered as Reported by: ELIE STORY on 08/06/10 1719 Ondansetron (Ondansetron Odt) 4 Mg Tab.rapdis, 4 MG PO Q8H PRN for nausea Prescribed by: REGINO RHODES on 02/12/21 1120 Sitagliptin Phos/Metformin Hcl (Janumet 50-1,000 Mg Tablet) 1 Each Tablet, 1 EACH PO BID WITH MEALS, (Reported) Entered as Reported by: ELIE STORY on 08/06/10 1723 Review of Systems Review of Systems Constitutional: see HPI EENTM: no symptoms reported Respiratory: no symptoms reported Cardiovascular: see HPI Gastrointestinal: no symptoms reported Genitourinary: no symptoms reported : No Musculoskeletal: no symptoms reported Skin: no symptoms reported Psychiatric/Neurological: See HPI Hematologic/Lymphatic: No Symptoms Reported Immunological/Allergic: no symptoms reported Past Thhjzat-Khydky-Uvjbbi Hx Patient Social History Tobacco Use?: No Use of E-Cig and/or Vaping dev: No Substance use?: No Alcohol Use?: No Pt feels they are or have been: No Immunizations Up To Date Influenza Vaccine Up-to-Date: Yes; Up-to-Date First/Initial COVID19 Vaccinat: N/A Past Medical History Surgery/Hospitalization HX: DM 2, BREAST CANCER, HTN Surgeries: Yes (C/S X2) Breast Respiratory: No Cardiac: Yes (RHEUMATIC FEVER A CHILD) Hypertension Neurological: Yes (MENIGITIS A CHILD) Reproductive Disorders: No (STATES HAS A LUMP IN RIGHT BREAST, BUT WASTOLD "I AM FINE") Gastrointestinal: Yes Valencia's Esophagus, Gastrointestinal Bleed Musculoskeletal: Yes Endocrine: Yes Cancer: Yes Breast Did You Recieve Any Treatments: Yes What Type of Treatment Did You: Radiation Psychosocial: Yes Integumentary: No Blood Disorders: No Physical Exam Vital Signs Capillary Refill : Less Than 3 Seconds Height, Weight, BMI Height: '" Weight: lbs. oz. kg; 32.00 BMI Method: General Appearance: WD/WN, Anxious, Thin HEENT: PERRL/EOMI, Normal ENT Inspection, Pharynx Normal Neck: Normal Inspection; No JVD Respiratory: Lungs Clear, Normal Breath Sounds, No Accessory Muscle Use Cardiovascular: No Edema, No Murmur, Irregularly Irregular, Tachycardia Gastrointestinal: Non Tender, Soft Progress/Results/Core Measures Suspected Sepsis SIRS Temperature: Pulse: 76 Respiratory Rate: 15 Blood Pressure 151 /73 Mean: 99 Laboratory Tests 10/18/21 02:45: Creatinine 1.23 Results/Orders Lab Results Laboratory Tests Test 10/18/21 02:45 10/18/21 03:40 Range/Units Sodium Level 137 135-145 MMOL/L Potassium Level 4.1 3.6-5.0 MMOL/L Chloride Level 101 98-107 MMOL/L Carbon Dioxide Level 21 21-32 MMOL/L Anion Gap 15 H 5-14 MMOL/L Blood Urea Nitrogen 26 H 7-18 MG/DL Creatinine 1.23 0.60-1.30 MG/DL Estimat Glomerular Filtration Rate 48 BUN/Creatinine Ratio 21 Glucose Level 111 H 70-105 MG/DL Calcium Level 9.9 8.5-10.1 MG/DL Glucometer 131 H 70-110 MG/DL My Orders Orders - BRITTANIE POE MD Accucheck Stat ONCE (10/18/21 02:58) Ed Iv/Invasive Line Start (10/18/21 02:58) Basic Metabolic Panel (10/18/21 02:58) Accucheck Stat ONCE (10/18/21 02:58) Vital Signs/I&O Capillary Refill : Less Than 3 Seconds Blood Pressure Mean: 99 Point of Care Testing Finger Stick Blood Glucose: 131 Blood Glucose Action Taken: ERP NOTIFIED Progress Note : Progress Note Patient was given crackers and juice. BMP was unremarkable. Patient stayed alert and oriented. She did fall asleep but woke easily to and oriented cognitive state. Repeat blood sugar was 130. More crackers were given to eat prior to discharge. See discharge instructions for further discussion. Departure Impression Primary Impression: Hypoglycemia associated with diabetes Disposition: 01 HOME, SELF-CARE Condition: Improved Departure-Patient Inst. Decision time for Depature: 03:56 Referrals: DAVID PUTNAM MD (PCP/Family) Primary Care Physician Patient Instructions: HYPOGLYCEMIA Add. Discharge Instructions: When you return home eat something with carbohydrates such as bread, pasta, candy, etc. Check your blood sugar to ensure it is not dangerously low before you go to sleep. Wake up about 2 hours later to check your blood sugar again. Then check your blood sugar fasting when you wake up and 2 hours after each meal. Do not substitute short acting insulin such as NovoLog to replace your long- acting Levemir. Short acting insulin such as NovoLog should always be taken in proximity to meals. Take your NovoLog with supper rather than at bedtime. Because Levemir is designed to act with slow onset and continue acting all day, you may continue taking it at bedtime. Resume your usual doses of insulin today. Call with questions or concerns. Return to the ER if you have worsening symptoms. All discharge instructions reviewed with patient and/or family. Voiced understanding. Copy Copies To 1: DAVID PUTNAM MD, JOSHUA T MD Oct 18, 2021 03:59
[2021-10-18 04:15] VITALS: BP 137/76
== END 2021-10-18 04:15 | disposition home or self-care (01) ==
LOC: EDUNIT# 02:44 → ER 02:47
DX: E11.649 Type 2 diabetes mellitus with hypoglycemia without coma (principal); I10 Essential (primary) hypertension; Z79.4 Long term (current) use of insulin; Z79.84 Long term (current) use of oral hypoglycemic drugs; Z79.899 Other long term (current) drug therapy
CPT/HCPCS: 36415; 80048; 82947

== ENCOUNTER → 2022-03-24 | Outpatient (CLI) | payer MEDICARE ==
--- NOTE | 2022-03-24 12:09 | Diagnostic Imaging Report ---
Indication: Pain in the 3rd finger Time of Exam: 11:03 AM There are degenerative changes of the DIP joint of the 3rd finger. No definite osseous erosive changes are seen. No fractures are identified. Soft tissues are unremarkable. No foreign body is seen. Proximal and middle phalanx are intact. Impression: There are some degenerative changes present particularly at the DIP joint. No other significant abnormality is seen. Dictated by: Dictated on workstation # [id number]
== END ==
LOC: RAD 10:41
PROVIDERS: ATTEND Nurse Practitioner Family
DX: M19.049 Primary osteoarthritis, unspecified hand (principal)
CPT/HCPCS: 73140

== ENCOUNTER → 2022-03-31 | Outpatient (CLI) | payer MEDICARE ==
[~2022-03-31] VITALS: Wt 83.0 kg
[~2022-03-31] MED LIST changes: +NS IV 1000 ML 1,000 ML IV ONE; +NS IV 1000 ML 1,000 ML ONE
[2022-03-31 13:50] VITALS: BP 134/64
[2022-03-31 14:08] LABS: BILIRUBIN,URINE NEGATIVE (NEGATIVE); CLARITY,URINE CLEAR; COLOR,URINE YELLOW; GLUCOSE, URINE (UA) NEGATIVE (NEGATIVE); KETONES,URINE NEGATIVE (NEGATIVE); LEUKOCYTE ESTERASE ,URINE NEGATIVE (NEGATIVE); NITRITE,URINE NEGATIVE (NEGATIVE); PH,URINE 6.5 (5-9); PROTEIN,URINE NEGATIVE (NEGATIVE)
[2022-03-31 14:17] LABS: BACTERIA,URINE TRACE /HPF; RENAL EPITHELIAL CELLS,URINE RARE /HPF; SQUAMOUS EPITHELIAL CELL,UR RARE /HPF; WBC,URINE RARE /HPF
== END ==
LOC: SDC 13:45
PROVIDERS: ATTEND Nurse Practitioner Family
DX: N17.9 Acute kidney failure, unspecified (principal); E86.0 Dehydration
CPT/HCPCS: 81000; 87088; 96360

== ENCOUNTER → 2022-04-03 | Outpatient (CLI) | payer MEDICARE ==
[~2022-04-03] MED LIST changes: -NS IV 1000 ML 1,000 ML IV ONE; -NS IV 1000 ML 1,000 ML ONE
[2022-04-03 13:51] LABS: ABSOLUTE RETIC # 61 10e9/uL (24-90); BASOPHILS % (AUTO) 0 % (0-10); EOSINOPHILS % (AUTO) 0 % (0-10); HEMATOCRIT 34 % (35-52); HEMOGLOBIN 11.6 g/dL (11.5-16.0); LYMPHOCYTES % (AUTO) 29 % (12-44); MEAN CORPUSCULAR HEMOGLOBIN 29 pg (25-34); MEAN CORPUSCULAR HGB CONC 34 g/dL (32-36); MEAN CORPUSCULAR VOLUME 87 fL (80-99); MEAN PLATELET VOLUME 9.7 fL (9.0-12.2); MONOCYTES # (AUTO) 0.3 10^3/uL (0.0-1.0); MONOCYTES % (AUTO) 10 % (0-12); NEUTROPHILS % (AUTO) 60 % (42-75); PLATELET COUNT 170 10^3/uL (130-400); RETICULOCYTE % 1.54 % (0.50-2.40); WHITE BLOOD COUNT 3.4 10^3/uL (4.3-11.0)
[2022-04-03 14:26] LABS: BAND NEUTROPHILS 6 %; BASOPHILS % (MANUAL) 0 %; EOSINOPHILS % (MANUAL) 0 %; LYMPHOCYTES % (MANUAL) 28 %; MONOCYTES % (MANUAL) 8 %; NEUTROPHILS % (MANUAL) 57 %; RBC MORPH NORMAL; REACTIVE LYMPHOCYTES 1 %
== END ==
LOC: LAB 13:29
PROVIDERS: ATTEND Internal Medicine
DX: D72.9 Disorder of white blood cells, unspecified (principal)
CPT/HCPCS: 36415; 85007; 85027; 85045; 85055

== ENCOUNTER → 2022-06-20 | Outpatient (CLI) | payer MEDICARE ==
--- NOTE | 2022-06-20 10:14 | Diagnostic Imaging Report ---
PROCEDURE: US Renal Bilateral. TECHNIQUE: Multiple real-time grayscale images were obtained over the kidneys in various projections bilaterally. INDICATION: Renal failure. Right kidney measures 10.0 x 4.0 x 3.8 cm and the left kidney measures 11.2 x 5.4 x 5.1 cm. Cortical thickness and echogenicity is normal. No calculi or hydronephrosis is detected. There is an area of hypoechogenicity in the upper pole left kidney measuring 2.1 x 2.0 x 3.2 cm. This cannot be characterized as purely cystic. No definite internal vascularity is seen. Bladder demonstrates both ureteral jets. IMPRESSION: 1. Hypoechoic mass upper pole left kidney, indeterminate. Dedicated CT abdomen with and without IV contrast would be recommended for better characterization. The study is otherwise unremarkable. Dictated by: Dictated on workstation # [id number]
== END ==
LOC: RAD 08:56
PROVIDERS: ATTEND Internal Medicine
DX: N28.89 Other specified disorders of kidney and ureter (principal); N17.8 Other acute kidney failure
CPT/HCPCS: 76770

== ENCOUNTER → 2023-01-06 | Outpatient (CLI) | payer MEDICARE ==
--- NOTE | 2023-01-06 18:02 | Diagnostic Imaging Report ---
PROCEDURE: US Renal Bilateral. TECHNIQUE: Multiple real-time grayscale images were obtained over the kidneys in various projections bilaterally. INDICATION: Acute kidney failure. Right kidney measures 9.9 x 4.2 x 4.4 cm and the left kidney 11.4 x 5.1 x 4.4 cm. The cortical thickness and echogenicity appears normal. No calculi are seen. There is no hydronephrosis. Right ureteral jet was visualized. Left ureteral jet was not visualized. IMPRESSION: Unremarkable renal ultrasound. Dictated by: Dictated on workstation # [id number]
== END ==
LOC: RAD 08:45
PROVIDERS: ATTEND Internal Medicine
DX: N17.8 Other acute kidney failure (principal)
CPT/HCPCS: 76770

== ENCOUNTER → 2023-02-17 | Outpatient (CLI) | payer MEDICARE ==
--- NOTE | 2023-02-17 13:41 | Diagnostic Imaging Report ---
INDICATION: Postmenopausal screening. COMPARISON: 04/02/2021 FINDINGS: AP Spine L1-L4: [BMD (g/cm2): 1.100] [T-Score: -0.8] [Z-Score: 0.1] [BMD Previous: 0.958] [BMD % Change: 14.8*] LT Hip Neck: [BMD (g/cm2): 0.747] [T-Score: -2.1] [Z-Score: -0.9] LT Hip Total: [BMD (g/cm2):0.900] [T-Score:-0.9] [Z-Score: 0.0] [BMD Previous: 0.947] [BMD % Change: -5.0*] RT Hip Neck: [BMD (g/cm2):0.767] [T-Score:-1.9] [Z-Score:-0.8] RT Hip Total: [BMD (g/cm2):0.892] [T-score:-0.9] [Z-Score:-0.1] [BMD Previous:0.935] [BMD % Change:-4.6*] *Indicates significant change from prior examination based on 95% confidence level. World Health Organization criteria for BMD interpretation classify patients as Normal (T-score at or above -1.0), Osteopenic (T-score between -1.0 and -2.5) or Osteoporotic (T-score at or below -2.5). LIMITATIONS AND MODIFICATION: None. FRACTURE RISK (FRAX SCORE): The ten year probability of (%): Major Osteoporotic Fracture: [11.4] Hip Fracture: [2.1] IMPRESSION: 1. Normal bone mineral density. 2. Since the previous exam, there has been mixed interval change. MR spine show significant increase in bone mineral density, whereas the hips show significant interval decrease 3. See below National Osteoporosis Foundation guidelines on when to potentially initiate pharmacologic therapy. Based on the National Osteoporosis Foundation Guidelines, pharmacologic treatment should be initiated in any of the following, unless clinical conditions suggest otherwise: * Any patient with prior fragility fracture of the hip or vertebrae. A spine fracture indicates 5X risk for subsequent spine fracture and 2X risk for subsequent hip fracture. * Osteoporosis (T-score <-2.5). * Postmenopausal women and men age 50 and older with low bone mass/osteopenia (T-score between -1.0 and -2.5) by DXA and 10-year major osteoporotic fracture greater than 20% or a 10-year probability of hip fracture greater than 3%. These fracture risks are supplied above in the FRAX score, if applicable. * Clinician judgement and/or patient preferences may indicate treatment for people with 10-year fracture probabilities above or below these levels. Dictated by: Dictated on workstation # [id number]
== END ==
LOC: RAD 10:44
PROVIDERS: ATTEND Internal Medicine Hematology & Oncology
DX: C50.212 Malignant neoplasm of upper-inner quadrant of left female breast (principal); Z79.811 Long term (current) use of aromatase inhibitors; Z78.0 Asymptomatic menopausal state
CPT/HCPCS: 77080